=== PATIENT | male | born 1980 | race Caucasian/White ===

== ENCOUNTER 2017-05-24 15:38 | Emergency (ER) | payer OTHER ==
[~2017-05-24] VITALS: Wt 102.1 kg
[~2017-05-24 15:38] MED LIST: DAYPRO600 M1 PO; FLEXERIL10 MG PO; HYDROCODONE BIT1 T11 PO; MOTRIN800 MG PO; MYCOLOG CREAM 115 GM T; Motrin,Rufen800 MG PO; NAPROSYN500 MG PO; NKHM; ROBAXIN500 MG PO; ROBAXIN750 MG PO; TRAMADOL HCL50 MG PO; ULTRAM50 MG PO; VICODIN 5-3001 EACH PO
[2017-05-24 16:08] LABS: BASO # 0.1 10*3/uL (0.0-0.1); BASO % 0.5 % (0.0-1.0); EOS # 0.3 10*3/uL (0.0-0.4); EOS % 2.5 % (1.0-4.0); HEMATOCRIT 42.9 % (42.0-52.0); HEMOGLOBIN 14.6 g/dl (14.0-18.0); LYMPH # 2.1 10*3/uL (1.3-4.4); LYMPH % 18.5 % (27.0-41.0); MEAN CELL VOLUME 94.3 fl (80.0-94.0); MEAN CORPUSCULAR HGB 32.1 pg (27.0-31.0); MEAN PLATELET VOLUME 9.5 fl (9.6-12.3); MONO # 0.7 10*3/uL (0.1-1.0); MONO % 6.3 % (3.0-9.0); NEUT % 71.6 % (47.0-73.0); PLATELET COUNT AUTOMATED 242 10*3/uL (130-400); RED BLOOD COUNT 4.55 10*6/uL (4.50-5.90); RED CELL DISTRI WIDTH 12.7 % (0-14.5); WHITE BLOOD COUNT 11.1 10*3/uL (4.8-10.8)
[2017-05-24 16:22] LABS: ALBUMIN 3.3 gm/dl (3.1-4.5); ALKALINE PHOSPHATASE 85 U/L (45-117); BUN 14 mg/dl (7-24); CHLORIDE 101 mmol/L (98-107); CREATININE 1.06 mg/dL (0.70-1.30); POTASSIUM 3.9 mmol/L (3.5-5.1); SGOT/AST 36 IU/L (3-35); SGPT/ALT 62 U/L (12-78); SODIUM 136 mmol/L (136-145)
[2017-05-24] MEDS ORDERED: PREDNISONE50 MG PO (17:40)
[2017-05-24] MEDS ORDERED: NORCO 5-325 TA1 EACH PO (17:40)
== END 2017-05-24 18:03 | disposition home or self-care (01) ==
LOC: ED 15:38
PROVIDERS: Nurse Practitioner Family
DX: M10.9 Gout, unspecified (principal); R03.0 Elevated blood-pressure reading, without diagnosis of hypertension; F10.10 Alcohol abuse, uncomplicated; Z88.0 Allergy status to penicillin

== ENCOUNTER 2017-07-28 12:21 | Emergency (ER) | payer OTHER ==
[~2017-07-28] VITALS: Ht 175.2 cm; Wt 106.6 kg
[~2017-07-28 12:21] MED LIST changes: +NORCO 5-325 TA1 EACH PO; +PREDNISONE50 MG PO
[2017-07-28] MEDS ORDERED: PRINIVIL10 MG PO (12:26)
[2017-07-28] MEDS ORDERED: NAPROSYN500 MG PO (14:03)
[2017-07-28] MEDS ORDERED: CHLORZOXAZONE500 M2 PO (14:03)
== END 2017-07-28 14:09 | disposition home or self-care (01) ==
LOC: ED 12:21
DX: R07.81 Pleurodynia (principal); R03.0 Elevated blood-pressure reading, without diagnosis of hypertension; M10.9 Gout, unspecified; Z79.899 Other long term (current) drug therapy; Z88.0 Allergy status to penicillin

== ENCOUNTER 2017-12-02 17:24 | Inpatient (IN) | payer OTHER ==
[2017-12-02] VITALS (7 sets, daily range): BP systolic 141–156; BP diastolic 79–92
[~2017-12-02] VITALS: Ht 175.2 cm; Wt 98.1 kg
--- NOTE | ~2017-12-02 | PR ---
[place], [place] PROGRESS NOTE NAME: [id number] UNIT #: [id number] ROOM: 502 DOCTOR: MEGHNA KUMAR MD BIRTHDATE: [birth year] DOS: SUBJECTIVE: The patient has been admitted to hospital with deep vein thrombosis of the left lower leg with pain and swelling of the left leg, which started 2 days ago, progressively got worse and yesterday it became so severe. He came to the Emergency Department where on investigation was found to be having deep vein thrombosis of the left lower leg and needed to be admitted to the hospital. The patient does not have any chest pain, no difficulty in breathing. No fever or chills and he has past history of hypertension, gout and spina bifida. The patient does not drink. He used to smoke before. Does not smoke now. Social drinker. On examination, the patient is conscious, alert and oriented. His blood pressure 135/90, pulse 76, respirations 20, temperature 98.1 and his vitamin B12 and folic acid level is normal. Comprehensive metabolic profile showed glucose 114 and sodium 133, cholesterol is 43, triglycerides 238 and hemoglobin A1c is 5.9. CBC today showed white count of 12,700, hemoglobin 14.9, hematocrit 45.8. The patient's pain and swelling of his left leg is better. He is still having lot of swelling of the left foot and left leg. OBJECTIVE: HEART: Regular. CHEST: Clear. ABDOMEN: Soft. MEGHNA KUMAR MD CM:PNTRANS [id number] MEGHNA KUMAR MD 12/03/17 1512 interface
[~2017-12-02 17:24] MED LIST changes: +CHLORZOXAZONE500 M2 PO; +PRINIVIL10 MG PO
[2017-12-02 17:41] LABS: BASO # 0.1 10*3/uL (0.0-0.1); BASO % 0.6 % (0.0-1.0); EOS # 0.3 10*3/uL (0.0-0.4); EOS % 1.9 % (1.0-4.0); HEMATOCRIT 46.8 % (42.0-52.0); HEMOGLOBIN 15.7 g/dl (14.0-18.0); LYMPH # 1.9 10*3/uL (1.3-4.4); LYMPH % 13.6 % (27.0-41.0); MEAN CELL VOLUME 94.7 fl (80.0-94.0); MEAN CORPUSCULAR HGB 31.8 pg (27.0-31.0); MEAN CORPUSCULAR HGB CONC 33.5 g/dl (33.0-37.0); MEAN PLATELET VOLUME 9.5 fl (9.6-12.3); MONO # 0.9 10*3/uL (0.1-1.0); NEUT % 77.5 % (47.0-73.0); PLATELET COUNT AUTOMATED 219 10*3/uL (130-400); RED BLOOD COUNT 4.94 10*6/uL (4.50-5.90); RED CELL DISTRI WIDTH 14.2 % (0-14.5); WHITE BLOOD COUNT 14.1 10*3/uL (4.8-10.8)
[2017-12-02 17:51] LABS: ACT PARTIAL THROMBO TIME 23.8 SECONDS (20.8-31.5)
[2017-12-02 17:56] LABS: ALBUMIN 3.9 gm/dl (3.1-4.5); ALKALINE PHOSPHATASE 99 U/L (45-117); BUN 10 mg/dl (7-24); CHLORIDE 100 mmol/L (98-107); POTASSIUM 3.9 mmol/L (3.5-5.1); SGOT/AST 72 IU/L (3-35); SGPT/ALT 96 U/L (12-78); SODIUM 133 mmol/L (136-145); TOTAL PROTEIN 8.5 gm/dL (6.4-8.2)
[2017-12-03 06:24] LABS: BASO # 0.1 10*3/uL (0.0-0.1); BASO % 0.6 % (0.0-1.0); EOS # 0.3 10*3/uL (0.0-0.4); EOS % 2.7 % (1.0-4.0); HEMATOCRIT 45.8 % (42.0-52.0); HEMOGLOBIN 14.9 g/dl (14.0-18.0); LYMPH # 2.1 10*3/uL (1.3-4.4); LYMPH % 16.4 % (27.0-41.0); MEAN CELL VOLUME 95.8 fl (80.0-94.0); MEAN CORPUSCULAR HGB 31.2 pg (27.0-31.0); MEAN CORPUSCULAR HGB CONC 32.5 g/dl (33.0-37.0); MEAN PLATELET VOLUME 10.3 fl (9.6-12.3); MONO # 0.9 10*3/uL (0.1-1.0); MONO % 6.9 % (3.0-9.0); NEUT # 9.2 10*3/uL (2.3-7.9); NEUT % 72.8 % (47.0-73.0); PLATELET COUNT AUTOMATED 209 10*3/uL (130-400); RED BLOOD COUNT 4.78 10*6/uL (4.50-5.90); RED CELL DISTRI WIDTH 14.2 % (0-14.5); WHITE BLOOD COUNT 12.7 10*3/uL (4.8-10.8)
[2017-12-03 06:53] LABS: ALBUMIN 3.4 gm/dl (3.1-4.5); ALKALINE PHOSPHATASE 80 U/L (45-117); BUN 7 mg/dl (7-24); CHLORIDE 99 mmol/L (98-107); CHOLESTEROL 190 mg/dL (<200); CREATININE 0.87 mg/dL (0.70-1.30); FREE T4 1.16 ng/dl (0.76-1.46); HDL CHOLESTEROL 45 mg/dl (40-60); LDL CHOLESTEROL 97 mg/dL (9-159); PHOSPHOROUS 3.7 mg/dL (2.5-4.9); POTASSIUM 4.1 mmol/L (3.5-5.1); SGOT/AST 43 IU/L (3-35); SGPT/ALT 76 U/L (12-78); SODIUM 133 mmol/L (136-145); TOTAL PROTEIN 7.9 gm/dL (6.4-8.2); TRIGLYCERIDES 238 mg/dl (<150); VLDL CHOLESTEROL 48 mg/dL (6-40)
[2017-12-03 07:13] LABS: VITAMIN D, 25-HYDROXY 28.7 ng/mL (30-100)
[2017-12-03 08:00] VITALS: BP 135/90
[2017-12-03] MEDS ORDERED: ZYLOPRIM300 MG PO (11:34)
[2017-12-03] MEDS ORDERED: CLARITIN10 MG PO (11:35)
[2017-12-03 12:00] VITALS: BP 142/97
[2017-12-03 16:00] VITALS: BP 143/81
[2017-12-03 20:00] VITALS: BP 134/88
[2017-12-04] VITALS: BP 130/77
[2017-12-04 08:00] VITALS: BP 135/85
[2017-12-04 12:00] VITALS: BP 140/80
[2017-12-04] MEDS ORDERED: VITAMIN D-32000 UNIT PO (12:33)
[2017-12-04] MEDS ORDERED: XARELTO1 EACH PO (12:33)
== END 2017-12-04 13:48 | disposition home or self-care (01) | DRG 299 ==
LOC: ED 17:24 → 5E 22:21 → EDHOLD 22:21 → 5E 22:46
PROVIDERS: Nurse Practitioner Family; Student in an Organized Health Care Education/Training Program
DX: I82.412 Acute embolism and thrombosis of left femoral vein (principal); R65.11 Systemic inflammatory response syndrome (SIRS) of non-infectious origin with acute organ dysfunction; E87.1 Hypo-osmolality and hyponatremia; D72.810 Lymphocytopenia; R73.9 Hyperglycemia, unspecified; I82.439 Acute embolism and thrombosis of unspecified popliteal vein; E55.9 Vitamin D deficiency, unspecified; I10 Essential (primary) hypertension; R74.0 Nonspecific elevation of levels of transaminase and lactic acid dehydrogenase [LDH]; M1A.0720 Idiopathic chronic gout, left ankle and foot, without tophus (tophi); Q05.9 Spina bifida, unspecified; Z88.0 Allergy status to penicillin; Z79.899 Other long term (current) drug therapy; Z72.89 Other problems related to lifestyle; Z82.49 Family history of ischemic heart disease and other diseases of the circulatory system; Z80.0 Family history of malignant neoplasm of digestive organs

== ENCOUNTER → 2018-01-25 | Outpatient (CLI) | payer OTHER ==
[~2018-01-25] MED LIST changes: +CLARITIN10 MG PO; +VITAMIN D-32000 UNIT PO; +XARELTO1 EACH PO; +ZYLOPRIM300 MG PO
== END | disposition home or self-care (01) ==
LOC: LAB 13:31
DX: L81.8 Other specified disorders of pigmentation (principal)

== ENCOUNTER 2018-10-11 13:42 | Emergency (ER) | payer OTHER ==
[~2018-10-11] VITALS: Ht 175.2 cm; Wt 96.2 kg
[~2018-10-11 13:42] MED LIST changes: +CLEOCIN HCL150 MG PO
[2018-10-11] MEDS ORDERED: Tobrex Ophth S2.5 ML OPH (14:11)
[2018-10-11] MEDS ORDERED: ACULAR 0.5%3 ML OPH (14:11)
== END 2018-10-11 14:18 | disposition home or self-care (01) ==
LOC: ED 13:42
DX: S05.11XA Contusion of eyeball and orbital tissues, right eye, initial encounter (principal); S05.01XA Injury of conjunctiva and corneal abrasion without foreign body, right eye, initial encounter; Z88.0 Allergy status to penicillin; Z79.899 Other long term (current) drug therapy; Z87.891 Personal history of nicotine dependence; W54.1XXA Struck by dog, initial encounter; Y93.89 Activity, other specified; Y92.89 Other specified places as the place of occurrence of the external cause; Y99.8 Other external cause status

== ENCOUNTER 2019-11-26 11:42 | Emergency (ER) | payer OTHER ==
[~2019-11-26] VITALS: Ht 175.2 cm; Wt 90.7 kg
[~2019-11-26 11:42] MED LIST changes: +ACULAR 0.5%3 ML OPH; +Tobrex Ophth S2.5 ML OPH
[2019-11-26 12:17] LABS: BASO # 0.1 10*3/uL (0.0-0.1); BASO % 0.9 % (0.0-1.0); EOS # 0.3 10*3/uL (0.0-0.4); EOS % 2.6 % (1.0-4.0); HEMATOCRIT 46.7 % (42.0-52.0); LYMPH # 1.3 10*3/uL (1.3-4.4); LYMPH % 13.1 % (27.0-41.0); MEAN CELL VOLUME 99.2 fl (80.0-94.0); MEAN CORPUSCULAR HGB 33.5 pg (27.0-31.0); MEAN CORPUSCULAR HGB CONC 33.8 g/dl (33.0-37.0); MEAN PLATELET VOLUME 9.2 fl (9.6-12.3); MONO # 0.8 10*3/uL (0.1-1.0); MONO % 7.3 % (3.0-9.0); NEUT # 7.7 10*3/uL (2.3-7.9); NEUT % 75.3 % (47.0-73.0); PLATELET COUNT AUTOMATED 217 10*3/uL (130-400); RED BLOOD COUNT 4.71 10*6/uL (4.50-5.90); WHITE BLOOD COUNT 10.3 10*3/uL (4.8-10.8)
[2019-11-26 12:27] LABS: ACT PARTIAL THROMBO TIME 25.3 SECONDS (20.0-32.1); INTERNATIONAL NORM RATIO 1.1 (2.0-3.5)
[2019-11-26 12:32] LABS: ALBUMIN 3.3 gm/dl (3.1-4.5); ALKALINE PHOSPHATASE 97 U/L (45-117); BUN 5 mg/dl (7-24); CHLORIDE 100 mmol/L (98-107); CREATININE 0.83 mg/dL (0.70-1.30); LIPASE 234 U/L (73-393); SGOT/AST 278 IU/L (3-35); SGPT/ALT 53 U/L (12-78); SODIUM 133 mmol/L (136-145); TOTAL PROTEIN 8.5 gm/dL (6.4-8.2)
[2019-11-26 13:03] LABS: BILIRUBIN NEGATIVE (NEGATIVE); CLARITY SL CLOUDY (CLEAR); COLOR YELLOW (YELLOW); GLUCOSE NEGATIVE (NEGATIVE)
[2019-11-26 13:04] LABS: BLOOD NEGATIVE (NEGATIVE); KETONE 1+ (NEGATIVE); LEUKO ESTERASE NEGATIVE (NEGATIVE); MUCOUS 2+; NITRITE NEGATIVE (NEGATIVE); RBC 0-2 rbc/hpf (0-2); SPECIFIC GRAVITY 1.025 (1.005-1.030); UROBILINOGEN 0.2 E.U./dl (0.2-1.0)
[2019-11-26] MEDS ORDERED: ZOFRAN4 MG PO (13:14)
== END 2019-11-26 13:20 | disposition home or self-care (01) ==
LOC: ED 11:42
PROVIDERS: Family Medicine
DX: E87.1 Hypo-osmolality and hyponatremia (principal); E86.0 Dehydration; Z88.0 Allergy status to penicillin; Z79.899 Other long term (current) drug therapy

== ENCOUNTER 2020-05-09 15:39 | Emergency (ER) | payer OTHER ==
[~2020-05-09] VITALS: Ht 175.2 cm; Wt 93.0 kg
[~2020-05-09 15:39] MED LIST changes: +ZOFRAN4 MG PO
[2020-05-09 16:24] LABS: BASO # 0.1 10*3/uL (0.0-0.1); BASO % 0.6 % (0.0-1.0); EOS # 0.3 10*3/uL (0.0-0.4); EOS % 2.3 % (1.0-4.0); HEMATOCRIT 47.9 % (42.0-52.0); LYMPH % 14.3 % (27.0-41.0); MEAN CELL VOLUME 96.8 fl (80.0-94.0); MEAN CORPUSCULAR HGB 32.3 pg (27.0-31.0); MEAN CORPUSCULAR HGB CONC 33.4 g/dl (33.0-37.0); MEAN PLATELET VOLUME 9.8 fl (9.6-12.3); MONO # 1.3 10*3/uL (0.1-1.0); MONO % 9.4 % (3.0-9.0); NEUT # 10.4 10*3/uL (2.3-7.9); NEUT % 72.8 % (47.0-73.0); PLATELET COUNT AUTOMATED 284 10*3/uL (130-400); RED BLOOD COUNT 4.95 10*6/uL (4.50-5.90); RED CELL DISTRI WIDTH 13.1 % (0-14.5); WHITE BLOOD COUNT 14.2 10*3/uL (4.8-10.8)
[2020-05-09 16:40] LABS: ALBUMIN 3.7 gm/dl (3.1-4.5); ALKALINE PHOSPHATASE 86 U/L (45-117); BUN 10 mg/dl (7-24); CHLORIDE 104 mmol/L (98-107); CREATININE 0.91 mg/dL (0.70-1.30); SGOT/AST 90 IU/L (3-35); SGPT/ALT 109 U/L (12-78); SODIUM 135 mmol/L (136-145); TOTAL PROTEIN 8.3 gm/dL (6.4-8.2)
== END 2020-05-09 17:02 | disposition home or self-care (01) ==
LOC: ED 15:39
PROVIDERS: Nurse Practitioner
DX: B34.9 Viral infection, unspecified (principal); D72.829 Elevated white blood cell count, unspecified; Z20.828 Contact with and (suspected) exposure to other viral communicable diseases; Z88.0 Allergy status to penicillin; Z79.899 Other long term (current) drug therapy

== ENCOUNTER 2020-09-02 11:16 | Emergency (ER) | payer OTHER ==
[~2020-09-02] VITALS: Wt 104.3 kg
[2020-09-02] MEDS ORDERED: DOXYCYCLINE100 M3 PO (11:58)
== END 2020-09-02 12:09 | disposition home or self-care (01) ==
LOC: ED 11:16
DX: S10.96XA Insect bite of unspecified part of neck, initial encounter (principal); Z88.0 Allergy status to penicillin; Z79.899 Other long term (current) drug therapy; W57.XXXA Bitten or stung by nonvenomous insect and other nonvenomous arthropods, initial encounter; Y93.89 Activity, other specified; Y92.89 Other specified places as the place of occurrence of the external cause; Y99.8 Other external cause status

== ENCOUNTER 2021-02-05 12:42 | Emergency (ER) | payer OTHER ==
[~2021-02-05] VITALS: Ht 175.2 cm; Wt 99.8 kg
[~2021-02-05 12:42] MED LIST changes: +DOXYCYCLINE100 M3 PO
[2021-02-05] MEDS ORDERED: NAPROSYN500 MG PO (15:47)
== END 2021-02-05 15:56 | disposition home or self-care (01) ==
LOC: ED 12:42
DX: M25.521 Pain in right elbow (principal); Z88.0 Allergy status to penicillin; Z79.899 Other long term (current) drug therapy; Z87.891 Personal history of nicotine dependence

== ENCOUNTER 2021-05-25 12:23 | Emergency (ER) | payer OTHER ==
[~2021-05-25] VITALS: Wt 97.5 kg
[2021-05-25 13:04] LABS: BASO # 0.1 10*3/uL (0.0-0.1); BASO % 0.9 % (0.0-1.0); EOS # 0.2 10*3/uL (0.0-0.4); EOS % 1.4 % (1.0-4.0); LYMPH # 1.5 10*3/uL (1.3-4.4); LYMPH % 12.4 % (27.0-41.0); MEAN CELL VOLUME 99.8 fl (80.0-94.0); MEAN CORPUSCULAR HGB 33.4 pg (27.0-31.0); MEAN CORPUSCULAR HGB CONC 33.5 g/dl (33.0-37.0); MEAN PLATELET VOLUME 9.5 fl (9.6-12.3); MONO # 0.7 10*3/uL (0.1-1.0); MONO % 6.1 % (3.0-9.0); NEUT # 9.3 10*3/uL (2.3-7.9); NEUT % 78.9 % (47.0-73.0); PLATELET COUNT AUTOMATED 259 10*3/uL (130-400); RED BLOOD COUNT 4.91 10*6/uL (4.50-5.90); RED CELL DISTRI WIDTH 13.4 % (0-14.5); WHITE BLOOD COUNT 11.7 10*3/uL (4.8-10.8)
[2021-05-25 13:21] LABS: ALBUMIN 3.1 gm/dl (3.1-4.5); ALKALINE PHOSPHATASE 94 U/L (45-117); BUN 6 mg/dl (7-24); CHLORIDE 105 mmol/L (98-107); CREATININE 0.96 mg/dL (0.70-1.30); POTASSIUM 4.4 mmol/L (3.5-5.1); SGOT/AST 56 IU/L (3-35); SGPT/ALT 85 U/L (12-78); SODIUM 135 mmol/L (136-145); TOTAL PROTEIN 7.9 gm/dL (6.4-8.2)
== END 2021-05-25 15:56 | disposition home or self-care (01) ==
LOC: ED 12:23
PROVIDERS: Internal Medicine
DX: R07.9 Chest pain, unspecified (principal); Z88.0 Allergy status to penicillin; Z79.899 Other long term (current) drug therapy; Z87.891 Personal history of nicotine dependence

== ENCOUNTER → 2022-12-12 | Outpatient (CLI) | payer OTHER | END | disposition home or self-care (01) | LOC: US 00:25 | PROVIDERS: ATTEND Internal Medicine | DX: K76.0 Fatty (change of) liver, not elsewhere classified (principal) ==

== ENCOUNTER → 2022-12-13 | Outpatient (CLI) | payer OTHER ==
[2022-12-14 06:08] LABS: HBSAG Negative (Negative); HEP B CORE AB, IGM Negative (Negative); HEPATITIS C ANTIBODY Non Reactive (Non Reactive)
== END ==
LOC: CARD 08:30 → LAB 08:31
PROVIDERS: ATTEND Internal Medicine
DX: R74.01 Elevation of levels of liver transaminase levels (principal)

== ENCOUNTER 2023-03-23 12:10 | Emergency (ER) | payer OTHER ==
[~2023-03-23] VITALS: Ht 175.2 cm; Wt 96.6 kg
[2023-03-30] MEDS ORDERED: TRAZODONE100 MG PO (19:13)
[2023-03-31] MEDS ORDERED: TOPROL XL25 MG PO (11:46)
== END 2023-03-23 15:24 | disposition left against medical advice (07) ==
LOC: ED 12:10
DX: R41.82 Altered mental status, unspecified (principal); Z88.0 Allergy status to penicillin; Z53.21 Procedure and treatment not carried out due to patient leaving prior to being seen by health care provider

== ENCOUNTER → 2023-05-09 | Outpatient (CLI) | payer OTHER ==
[~2023-05-09] MED LIST changes: +ASPIRIN ADULT L81 M1 PO; +CITALOPRAM20 MG PO; +HYDROXYZINE HCL25 MG PO; +LIPITOR10 MG PO; +NATURE'S BLEND F1 MG PO; +TOPROL XL25 MG PO; +TRAZODONE100 MG PO
== END ==
LOC: CARD 05-02 07:00
PROVIDERS: ATTEND Internal Medicine Cardiovascular Disease
DX: I47.10 Supraventricular tachycardia, unspecified (principal); I10 Essential (primary) hypertension; R94.31 Abnormal electrocardiogram [ECG] [EKG]